=== PATIENT | male | born 1960 | race Caucasian/White ===

== ENCOUNTER → 2023-11-07 | Outpatient (CLI) | payer MEDICARE ==
--- NOTE | 2023-11-19 23:32 | SLS ---
SLEEP STUDY This is a home sleep study. HISTORY OF PRESENT ILLNESS: This is a 63-year-old male patient with chronic hypersomnia and sleepiness. The patient has previous diagnosis of obstructive sleep apnea and he has not received therapy in the past. He has chronic fatigue and sleepiness with an Boulder score of 15. Comorbid conditions include hypertension, hyperlipidemia, diabetes mellitus, peripheral vascular disease, and chronic stage 3 kidney disease. PERTINENT PHYSICAL FINDINGS: Body mass index is 38.1. The patient has a height of 6 feet and weight is 281. TECHNICAL DESCRIPTION: The [employer] system was used to complete the home sleep study. This is a type 3 home sleep study. Total recording duration was 7 hours and 4 minutes. The study started at 9:49 p.m., ended at 4:54 a.m. The patient had a total of 4 hours and 2 minutes of flow monitoring and 6 hours and 10 minutes of oxygen saturation monitoring. RESULTS: Respiratory analysis showed a total of 25 obstructive apneas and 94 obstructive hypopneas and the resulting AHI was 24. OXYGENATION ANALYSIS: The baseline pulse ox was 98%. Average pulse ox during sleep was 92%. Minimum pulse ox was 74%. The patient spent approximately 42 minutes of sleep time below pulse ox of 89%. CARDIAC SUMMARY: Average heart rate was 89, minimum heart rate was 44, maximum heart rate was 185. ASSESSMENT: 1. Obstructive sleep apnea, moderate severe AHI of 24.4. 2. Nocturnal oxygen desaturation secondary to above. Minimum pulse ox of 74%. 3. Chronic hypersomnia. Boulder score of 15. 4. Obesity with a body mass index of 38. 5. Sleep fragmentation. 6. Hypertension. 7. Hyperlipidemia. 8. Diabetes mellitus, type 2. 9. Peripheral vascular disease. 10.Chronic stage 3 kidney disease. PLAN: The patient is in need for CPAP therapy. The patient will be asked to [facility] to undergo a CPAP titration regarding treatment of moderately severe symptomatic sleep apnea, which is essentially obstructive in nature. We will continue to follow. MMODL / IJN: [id number] /
== END ==
LOC: 3 N SLEEP 16:43
PROVIDERS: ATTEND Internal Medicine Critical Care Medicine
DX: G47.33 Obstructive sleep apnea (adult) (pediatric) (principal); G47.10 Hypersomnia, unspecified; I10 Essential (primary) hypertension; E78.5 Hyperlipidemia, unspecified; E11.9 Type 2 diabetes mellitus without complications; I73.9 Peripheral vascular disease, unspecified; N18.30 Chronic kidney disease, stage 3 unspecified; E66.9 Obesity, unspecified; Z68.38 Body mass index [BMI] 38.0-38.9, adult